=== PATIENT | male | born 1995 | race Caucasian/White ===

== ENCOUNTER 2022-02-13 14:24 | Emergency (ER) | payer MEDICAID ==
[~2022-02-13] VITALS: Ht 172.7 cm; Wt 87.5 kg
[2022-02-13 14:29] VITALS: BP_SYST 137
[2022-02-13 14:43] VITALS: BP_SYST 115
[2022-02-13] MEDS ORDERED: ONDA-8 TL (14:52)
== END 2022-02-13 14:43 | disposition home or self-care (01) ==
LOC: SED 14:24
DX: R11.15 Cyclical vomiting syndrome unrelated to migraine (principal); R10.9 Unspecified abdominal pain; F12.90 Cannabis use, unspecified, uncomplicated; Z79.899 Other long term (current) drug therapy
CPT/HCPCS: 99283

== ENCOUNTER 2022-05-24 20:22 | Emergency (ER) | payer MEDICAID ==
[~2022-05-24] VITALS: Ht 172.7 cm; Wt 87.1 kg
[~2022-05-24 20:22] MED LIST: ONDA-8 TL
[2022-05-24 20:29] VITALS: BP_SYST 133
--- NOTE | 2022-05-24 21:05 | NUR ---
Patient to ER bed dahl 1 to gown for evaluation. Side rails up. Report given to Clarisa JARRETT.
--- NOTE | 2022-05-24 21:06 | NUR ---
Report given to Jake JARRETT
--- NOTE | 2022-05-24 21:09 | NUR ---
ER at bedside examining patient.
--- NOTE | 2022-05-24 21:10 | NUR ---
PT FROM HOME WITH C/O OF VOMITING AND ABD PAIN X 1 DAY. PT REPORTS BLOOD TINGED EMESIS. DENIES DIARRHEA AND FEVER. PT VSS. SAFETY PRECAUTIONS IN PLACE.
[2022-05-24] MEDS ORDERED: HALOPERIDOL LACTATE 5 MG/ML VIAL IM ONE (21:15)
[2022-05-24 21:36] LABS: BASOPHILS % (AUTO) 0.4 % (0.0-2.0); HEMATOCRIT 48.3 % (36-54); HEMOGLOBIN 16.4 g/dL (14.0-18.0); LYMPHOCYTES # (AUTO) 1.1 K/uL (1.0-5.5); LYMPHOCYTES % (AUTO) 9.5 % (20.5-51.5); MEAN CORPUSCULAR HEMOGLOBIN 28 pg (27-31); MEAN CORPUSCULAR HGB CONC 34 % (32-36); MEAN CORPUSCULAR VOLUME 82 fL (79.0-98.0); MONOCYTES # (AUTO) 0.4 K/uL (0.0-1.0); MONOCYTES % (AUTO) 3.1 % (1.7-9.3); NEUTROPHILS # (AUTO) 10.2 K/uL (1.8-7.7); PLATELET COUNT (AUTO) 309 K/uL (130-430); RED BLOOD CELL COUNT(AUTO) 5.92 MIL/uL (4.2-6.2); RED CELL DISTRIBUTION WIDTH 14.2 % (9.0-15.0); WHITE BLOOD COUNT (AUTO) 11.8 K/uL (4.8-10.8)
[2022-05-24 21:58] LABS: ANION GAP 10 (5-15); CHLORIDE 100 mmol/L (98-107); CREATININE 1.36 mg/dL (0.55-1.30); GLUCOSE 128 mg/dL (70-99); UREA NITROGEN, BLOOD 18 mg/dL (8-21)
[2022-05-24 22:03] LABS: ALANINE AMINOTRANSFERASE 97 U/L (12-78); ALBUMIN 4.6 g/dL (3.4-4.8); AMYLASE 60 U/L (0-100); ASPARTATE AMINOTRANSFERASE 37 U/L (10-37); C-REACTIVE PROTEIN QUANT 0.2 mg/dL (0-0.5); LIPASE 142 U/L (73-393); TOTAL BILIRUBIN 0.6 mg/dL (0.0-1.0)
--- NOTE | 2022-05-24 22:03 | NUR ---
PT UNABLE TO PROVIDE URINE SAMPLE. MADE AWARE.
[2022-05-24 22:15] LABS: GFR AFRICAN AMERICAN 81 mL/min (>90)
[2022-05-24] MEDS ORDERED: ONDA8TAB60 PO (22:34)
--- NOTE | 2022-05-24 22:47 | NUR ---
Patient given written and verbal discharge instructions and verbalizes understanding. ER MD discussed with patient the results and treatment provided. Patient in stable condition. ID arm band removed. Rx of Zofran given. Patient educated on pain management and to follow up with PMD. Pain Scale 0/10. Opportunity for questions provided and answered. Medication side effect fact sheet provided.
[2022-05-24 22:50] VITALS: BP_SYST 125
[2022-05-24 23:05] LABS: ACETONE, SERUM NEGATIVE (NEGATIVE)
== END 2022-05-24 22:50 | disposition home or self-care (01) ==
LOC: SED 20:22
DX: R11.2 Nausea with vomiting, unspecified (principal); F12.90 Cannabis use, unspecified, uncomplicated; Z79.899 Other long term (current) drug therapy
CPT/HCPCS: 99283; 80053; 82009; 82150; 83690; 85025; 86140; 36415; 96372; 83605; J1630

== ENCOUNTER 2022-05-26 10:03 | Emergency (ER) | payer MEDICAID ==
[~2022-05-26] VITALS: Ht 172.7 cm; Wt 87.1 kg
[~2022-05-26 10:03] MED LIST changes: +ONDA8TAB60 PO
[2022-05-26 10:05] VITALS: BP_SYST 139
--- NOTE | 2022-05-26 10:09 | NUR ---
Patient triaged and placed in waiting room. VSS and patient appears in no acute distress at this time. Accompanied by SELF, awaiting available bed, and MD notified of need for MSE.
--- NOTE | 2022-05-26 11:40 | NUR ---
PT NOT IN WAITING ROOM WHEN CALLED FOR BED PLACEMENT
--- NOTE | 2022-05-26 12:01 | NUR ---
DR COPPOLA WENT TO TRIAGE ROOM TO EVALUATE, UNABLE TO LOCATE PT
--- NOTE | 2022-05-26 12:10 | NUR ---
PT LEFT WITHOUT BEING SEEN BY
== END 2022-05-26 12:10 | disposition left against medical advice (07) ==
LOC: SED 10:03
DX: R10.9 Unspecified abdominal pain (principal); R11.10 Vomiting, unspecified; Z53.21 Procedure and treatment not carried out due to patient leaving prior to being seen by health care provider